=== PATIENT | male | born 1980 | race Caucasian/White ===

== ENCOUNTER 2018-01-02 15:39 | Emergency (ER) | payer SELFPAY ==
[2018-01-02] MEDS: HYDROcodone/APAP 5/325MG 1 TAB TABLET PO (16:15)
[2018-01-02] MEDS: DIPHTH,PERTUSS(ACELL),TET TOX 0.5 ML DISP.SYRIN. VAX IM (16:16)
== END 2018-01-02 16:30 | disposition home or self-care (01) ==
LOC: ER 15:39
DX: S62.306B Unspecified fracture of fifth metacarpal bone, right hand, initial encounter for open fracture (principal); W22.03XA Walked into furniture, initial encounter; Y93.89 Activity, other specified; Y99.8 Other external cause status; Y92.89 Other specified places as the place of occurrence of the external cause
CPT/HCPCS: 29125; 73130; 90471; 90715; 99284-25

== ENCOUNTER 2018-01-16 05:54 | Day surgery (SDC) | payer SELFPAY ==
[2018-01-16] MEDS: IV RINGERS,LACTATED 1000ML 1,000 ML IV (06:51)
[2018-01-16] MEDS ORDERED: LIDOCAINE 1% PF 2 ML VIAL. ID (07:00)
[2018-01-16] MEDS ORDERED: fentaNYL PF VIAL 100 MCG/2 ML VIAL IV (07:00)
[2018-01-16] MEDS ORDERED: ONDANSETRON PF 4 MG/2 ML VIAL. IV (07:00)
[2018-01-16] MEDS ORDERED: ONDANSETRON PF 4 MG/2 ML VIAL. (07:08)
[2018-01-16] MEDS ORDERED: DEXAMETHASONE SOD PHOS 20 MG/5 ML VIAL. (07:08)
[2018-01-16] MEDS ORDERED: KETOROLAC 30 MG/ML INJ FOR OR. INJ (07:08)
[2018-01-16] MEDS ORDERED: PROPOFOL 20 ML IV (07:08)
[2018-01-16] MEDS ORDERED: LIDOCAINE 2% PF Vial for OR 5 ML VIAL. (07:08)
[2018-01-16] MEDS ORDERED: FAMOTIDINE 20 MG/2 ML VIAL (07:08)
[2018-01-16] MEDS ORDERED: MIDAZOLAM HCL/PF 2 MG/2 ML VIAL. (07:09)
[2018-01-16] MEDS ORDERED: KETAMINE HCL 500 MG/10 ML VIAL. (07:15)
[2018-01-16] MEDS: LIDOCAINE 1% PF 30 ML VIAL. (08:00)
[2018-01-16] MEDS: BUPIVACAINE MPF 0.5% 30 ML VIAL. (08:00)
[2018-01-16] MEDS ORDERED: SEVOFLURANE 31 TO 60 MINUTES. IH (08:17)
[2018-01-16] MEDS: PROCHLORPERAZINE 10 MG/2 ML VIAL. IV (08:50)
[2018-01-16] MEDS: fentaNYL PF VIAL 100 MCG/2 ML VIAL IV ×2 (08:50→09:00)
[2018-01-16] MEDS: MORPHINE SULFATE 4 MG/ML DISP.SYRIN. IV ×2 (09:10→09:43)
[2018-01-16] MEDS: HYDROcodone/APAP 5/325MG 1 TAB TABLET PO (09:28)
== END 2018-01-16 10:16 | disposition home or self-care (01) ==
LOC: SURG 05:54
DX: S62.326A Displaced fracture of shaft of fifth metacarpal bone, right hand, initial encounter for closed fracture (principal); W22.8XXA Striking against or struck by other objects, initial encounter; Y93.89 Activity, other specified; Y92.89 Other specified places as the place of occurrence of the external cause; Y99.8 Other external cause status; Z98.890 Other specified postprocedural states; Z72.89 Other problems related to lifestyle; F17.210 Nicotine dependence, cigarettes, uncomplicated
CPT/HCPCS: 26608; 76000; A7015; J0690; J0780; J1100; J1885; J2250; J2270; J2405; J2704; J3010; J3490; J7120; S0028

== ENCOUNTER 2018-03-27 17:43 | Emergency (ER) | payer SELFPAY | END 2018-03-27 18:24 | disposition home or self-care (01) | LOC: ER 17:43 | DX: T63.481A Toxic effect of venom of other arthropod, accidental (unintentional), initial encounter (principal); R22.31 Localized swelling, mass and lump, right upper limb; Y92.89 Other specified places as the place of occurrence of the external cause | CPT/HCPCS: 99283 ==